=== PATIENT | female | born 1985 | race Hispanic/Latino ===

== ENCOUNTER 2020-01-06 10:09 | Observation (INO) | payer MEDICAID, OTHER, SELFPAY ==
[2020-01-06 11:03] VITALS: BMI 29.2
[2020-01-06] MEDS ORDERED: hydrALAZINE 20 MG/ML VIAL SLOW IVP PRN ×2 (11:08→12:12)
--- NOTE | 2020-01-06 11:41 | PDOC.FPROB ---
FMR OB H&P: HPI - History of Present Illness Chief Complaint: prolonged decel outpatient. Indentification: 34 yo at 33.0 wga by LMP c/w 13.4 wk sono History of Present Illness: Pt is here from [facility] after having NST today showing a prolonged decel lasting approximately 4 minutes. It was confirmed this was not maternal HR by simultaneously measuring maternal HR during NST. Pt speaks Georgian; video conference interpreter was used. Pt was being monitored for polyhydramnios; she has pregestational T2DM and cHTN. Last growth ultrasound was done approx 2 days ago and showed Hadlock of 98 %ile along w/ SERGIO of 27. + FM, no VB, no LOF, no ctx. Pt denies all symptoms; she has not been ill. Denies symptoms of Pre-E including headache, vision changes/flashes, RUQ pain, and edema. [facility] H&P: Current - Care : 2 Para: 1001 Gestational age: 35 Due date: 02/24/2020 Dating Criteria: LMP c/w 13.4 wk sono Course/Complications: Pre-gestational DM on insulin cHTN Polyhydramnios - OB Labs Blood type: O RH: positive Antibody Screen: negative HIV: negative RPR: negative HepBsAg: negative Rubella: immune Gonorrhea: negative Chlamydia: negative Pap Smear: NILM, HPV neg A1c: 8.6. Started lantus. Most recent A1C was 7.3. GBS: unknown Additional labs: Varicella immune. - Additional Ultrasound Additional: Echo: small muscular VSD FMR OB H&P: History - Past Medical History PMH: HTN T2DM - OB History OB History: Hx of 1 at 37 wga. - MECHANICAL SYSTEMS DESIGN ENGINEER History MECHANICAL SYSTEMS DESIGN ENGINEER History: none - Surgical History Sx History: none - Social History Social History: Denies smoking, drinking, drugs. - Family History Family History: denies. FMR OB H&P: Medications - Current Home Medications: Medication Instructions Recorded Confirmed Type Pnv95/Iron Fum/Folic Acid 1 each PO DAILY 06/28/16 01/06/20 History [ Caplet] Humulin R 3 units SQ TID-WM 01/06/20 01/06/20 History Insulin Glargine,Hum.Rec.Anlog 25 units SQ HS 01/06/20 01/06/20 History [Lantus] Allergies/Adverse Reactions: Allergies Allergy/AdvReac Type Severity Reaction Status Date / Time No Known Allergies Allergy Verified 07/28/16 19:43 FMR OB H&P: ROS - Review of Systems General: denies: fever/chills Eyes: denies: vision changes, scotomas ENT: denies: nasal congestion, rhinorrhea Cardiovascular: denies: chest pain, palpitation, edema Respiratory: denies: cough, shortness of breath Gastrointestinal: denies: abdominal pain, nausea, vomiting, diarrhea Genitourinary (Female): denies: dysuria, polyuria Musculoskeletal: denies: pain Neurologic: denies: syncope Integumentary: denies: rash Psychological: denies: depression, anxiety FMR OB H&P: Vital Signs - Maternal Vital signs: BP 131/63 HR 109 - Heart Tones Baseline: 120 (reactive) Variability: moderate Acceleration: present Deceleration: absent FMR OB H&P: Physical Exam - Physical Exam General: NAD, awake, alert and oriented HEENT: normocephalic and atraumatic, MMM, conjunctiva clear, grossly normal vision, grossly normal hearing Neck: supple, trachea midline Heart: normal S1/S2 Deviation from normal: tachycardic General: CTAB, no respiratory distress Abdomen: soft, gravid, bowel sound present Musculoskeletal: pulses present Neurological: no focal deficit Skin: no rash Lymphatic: no unusual bruising or bleeding Psychiatric: intact recent and remote memory, normal mood and affect - Pelvic Exam Estimated Weight: 8 lbs FMR OB H&P: Results - Labs Lab results: Laboratory Results - last 24 hr 01/06/20 11:17 POC Glucose 89 FMR OB H&P: A/P - Problem List (1) Pregestational diabetes mellitus, modified White class B Current Visit: Yes Status: Acute Code(s): O24.319 - UNSP PRE-EXISTING DIABETES IN , UNSP TRIMESTER (2) Chronic hypertension Current Visit: Yes Status: Acute Code(s): I10 - ESSENTIAL (PRIMARY) HYPERTENSION (3) Multiparous Current Visit: Yes Status: Acute Code(s): Z64.1 - PROBLEMS RELATED TO MULTIPARITY Disposition: admit to biometrics head service for observation and glucose control. Discussion: Date/Time: 01/06/20 1134 34 yo at 33.0wga by LMP/13.4 wk sono here for: Prolonged decel on outpatient NST - repeat NST here - BPP showing 04/22 - due to pt's high risk of stillbirth, will admit for glucose control and NST every shift. Small muscular VSD on echo Pregestational T2DM - continue home lantus and humulin doses - glucose fasting and 2-hour postprandial. - admit for glucose control. cHTN - on aspirin. This H&P was discussed with Dr. Montelongo, and Dr. Tenorio who agree with the above documentation and plan. Signature: Erica Stoddard MD PGY1
--- NOTE | 2020-01-06 12:11 | ULT ---
EXAM: US Biophysical Profile PROVIDED CLINICAL HISTORY: Positive . Hypertension, class B diabetes mellitus. COMPARISON: None FINDINGS: There is evidence of a single intrauterine gestation in cephalic presentation. Cardiac Doppler demons trates heart tones with a heart rate of 123 bpm. The placenta is located anteriorly without evidence of placenta previa. Anechoic area is seen within the placenta likely attributable to fibrin deposition or possibly venous lópez. Amniotic fluid index is increased measuring 19 cm. A score of 2 was obtained each for tone, breathing, movements, and amniotic fluid v olume. IMPRESSION: 1. Increased amniotic fluid index of 19 cm suggesting polyhydramnios. 2. Single intrauterine gestation in cephalic presentation with heart tones documented. 3. Total biophysical profile score of 8 out of 8.
[2020-01-06] MEDS ORDERED: Promethazine HCl 25 MG/ML VIAL IM PRN (12:12)
[2020-01-06] MEDS ORDERED: Ondansetron PF 4 MG/2 ML Vial IVP PRN (12:12)
[2020-01-06] MEDS ORDERED: Acetaminophen 500 MG TAB PO PRN (12:12)
[2020-01-06] MEDS ORDERED: Dextrose 50% Abboject 50 ML SYRINGE SLOW IVP PRN (12:15)
[2020-01-06] MEDS ORDERED: Dextrose 5% in Water 1,000 ML IV PRN (12:15)
[2020-01-06] MEDS ORDERED: Insulin Regular 300 UNITS/3 ML VIAL ONE (12:58)
[2020-01-06] MEDS ORDERED: Insulin Regular 300 UNITS/3 ML VIAL SC SCH ×2 (16:30)
[2020-01-06] MEDS ORDERED: INSULIN REGULAR SQ SCH (17:00)
[2020-01-06] MEDS: Insulin Glargine 25 UNITS in Pre-Filled Syringe SC SCH (21:03)
--- NOTE | 2020-01-07 06:07 | PDOC.OBAPN ---
FMR OB AP PN: Sub - Interval History Chief Complaint: elevated glucose Indentification: 34 y/o @ 33.1 WGA by LMP/13.4 wk sono Interval History: Denies ctx, LOF, VB, H/A, vision changes, SOB, edema. +FM FMR OB AP PN: Obj - Maternal Vital signs: BP: 111/67 HR: 84 RR: 15 Tmax: 98.0 Pox: 98% on RA Wt: 68kg FMR OB AP PN: Exam - Physical Exam General: NAD, awake, alert and oriented HEENT: normocephalic and atraumatic, MMM, conjunctiva clear, grossly normal vision, grossly normal hearing Neck: supple, no LAD Heart: RRR, normal S1/S2, no murmurs/rubs/gallops, pulses present, no edema General: CTAB, no respiratory distress, good air movement, no rales/rhonchi, no wheezing Abdomen: soft, gravid, non-tender Musculoskeletal: pulses present, FROM in all four extremities Neurological: no focal deficit Skin: good tugor, capillary refill <2 seconds Lymphatic: no unusual bruising or bleeding, no purpura Psychiatric: intact recent and remote memory, good judgement and insight FMR OB AP PN: Data - Labs Lab results: Laboratory Results - last 24 hr 01/06/20 01/06/20 11:17 19:26 POC Glucose 89 132 H R OB AP PN: A/P - Problem List (1) Current Visit: Yes Status: Acute Qualifiers: Weeks of gestation: 33 weeks Qualified Code(s): Z3A.33 - 33 weeks gestation of (2) Pregestational diabetes mellitus, modified White class B Current Visit: Yes Status: Acute Code(s): O24.319 - UNSP PRE-EXISTING DIABETES IN , UNSP TRIMESTER (3) Chronic hypertension Current Visit: Yes Status: Acute Code(s): I10 - ESSENTIAL (PRIMARY) HYPERTENSION (4) Polyhydramnios affecting Current Visit: Yes Status: Acute Code(s): O40.9XX0 - POLYHYDRAMNIOS, UNSP TRIMESTER, NOT APPLICABLE OR UNSP Disposition: 1. Class B Pregestational Diabetes Pt with A1c 8.6 earlier in , now down to 7.3. Pt on lantus 25U qHS and Humulin R 3U with breakfast, 3U with lunch, 6U with dinner. She reports all her glucose have been well controlled. Polyhydramnios on US the past couple of weeks. Random glucose yesterday was 89 after pt had been fasting and only had a couple of sips of apple juice. Dinner 2h postprandial was 132. Fasting this AM 84. NST overnight reactive. BPP on 01/05 8. -Will monitor fasting and 2h postprandials throughout the day and titrate up insulin as indicated. -CC diet -Continue aspirin 2. Chronic HTN BP's all < 140/90 while she has been here with one that was 139 systolic. She is not on any medications -Will monitor -Continue aspirin 3. Polyhydramnios Possible sign of uncontrolled glucose 4. VSD Small -MFM aware 5. -Will do qshift NST's - vitamins Discussion: Date/Time: 01/07/20 0605 This H&P was discussed with Dr. Montelongo who agrees with the above documentation and plan. Signature: Pennie Tenorio MD, PGY-3
[2020-01-07] MEDS: Insulin Regular 300 UNITS/3 ML VIAL SC SCH ×3 (08:02→17:05)
[2020-01-07] MEDS: Prenatal Vitamin 1 TAB PO SCH (08:02)
[2020-01-07] MEDS: Aspirin 81 mg Enteric Coated Tablet PO SCH (08:02)
[2020-01-07] MEDS ORDERED: Insulin Regular 300 UNITS/3 ML VIAL SC SCH ×3 (10:15→17:00)
--- NOTE | 2020-01-07 14:51 | PDOC.BPN ---
- Brief Progress Note Called to review NST by RN. NST interpretation: FHR baseline: 140 bpm Accels x2, 15x15, appropriate for 33.1 wga No decels. No obvious contractions, possibly some uterine irritability. NST Reactive.
[2020-01-07] MEDS: Insulin Glargine 25 UNITS in Pre-Filled Syringe SC SCH (21:26)
--- NOTE | 2020-01-08 07:24 | PDOC.OBAPN ---
FMR OB AP PN: Sub - Interval History Chief Complaint: elevated glucose Indentification: 34 y/o @ 33.2 WGA by LMP/13.4 wk sono Interval History: Denies ctx, LOF, VB, H/A, vision changes, SOB, edema. +FM FMR OB AP PN: Obj - Maternal Vital signs: BP: 129/86 HR: 92 RR: 18 Tmax: 98.4 Pox: 100% on RA Wt: 68kg FMR OB AP PN: Exam - Physical Exam General: NAD, awake, alert and oriented HEENT: MMM, conjunctiva clear, grossly normal vision, grossly normal hearing Neck: supple, FROM Heart: pulses present, no edema General: no respiratory distress Abdomen: soft, gravid Musculoskeletal: normal gait and station, pulses present Neurological: no focal deficit Skin: good tugor, capillary refill <2 seconds Lymphatic: no unusual bruising or bleeding, no purpura Psychiatric: intact recent and remote memory, good judgement and insight FMR OB AP PN: Data - Labs Lab results: Laboratory Results - last 24 hr 01/06/20 01/07/20 01/07/20 15:34 10:08 13:17 POC Glucose 119 H 172 H 181 H 01/07/20 01/07/20 01/08/20 15:37 20:16 06:42 POC Glucose 89 131 H 92 FMR OB AP PN: A/P - Problem List (1) Current Visit: Yes Status: Acute Qualifiers: Weeks of gestation: 33 weeks Qualified Code(s): Z3A.33 - 33 weeks gestation of (2) Pregestational diabetes mellitus, modified White class B Current Visit: Yes Status: Acute Code(s): O24.319 - UNSP PRE-EXISTING DIABETES IN , UNSP TRIMESTER (3) Chronic hypertension Current Visit: Yes Status: Acute Code(s): I10 - ESSENTIAL (PRIMARY) HYPERTENSION (4) Polyhydramnios affecting Current Visit: Yes Status: Acute Code(s): O40.9XX0 - POLYHYDRAMNIOS, UNSP TRIMESTER, NOT APPLICABLE OR UNSP Disposition: 1. Class B Pregestational Diabetes Pt with A1c 8.6 earlier in , now down to 7.3. Pt on lantus 25U qHS and Humulin R 3U with breakfast, 3U with lunch, 6U with dinner. She reports all her glucose have been well controlled. Polyhydramnios on US the past couple of weeks. NST overnight reactive. BPP on 01/05 04/22. Pt postprandials uncontrolled yesterday with normal fastings so before dinner had a discussion with Dr. Somers and decided to change her humulin R regimen to 10U BID and will titrate from there. -Will monitor fasting and 2h postprandials throughout the day and titrate up insulin as indicated. -CC diet -Continue aspirin 2. Chronic HTN BP's all < 140/90 while she has been here with one that was 139 systolic. She is not on any medications -Will monitor -Continue aspirin 3. Polyhydramnios Possible sign of uncontrolled glucose 4. Macrosomia -Last growth US hadlock 98%tile, likely 2/2 uncontrolled DM 5. VSD Small -MFM aware 6. -Will do qshift NST's - vitamins Discussion: Date/Time: 01/08/20723 This H&P was discussed with Dr. Hurtado who agrees with the above documentation and plan. Signature: Pennie Tenorio MD, PGY-3
[2020-01-08] MEDS: Insulin Regular 300 UNITS/3 ML VIAL SC SCH ×2 (07:45→17:19)
[2020-01-08] MEDS: Aspirin 81 mg Enteric Coated Tablet PO SCH (08:42)
[2020-01-08] MEDS: Prenatal Vitamin 1 TAB PO SCH (08:42)
[2020-01-08] MEDS: Insulin Glargine 28 UNITS in Pre-Filled Syringe 1 EACH SC SCH (20:37)
--- NOTE | 2020-01-09 06:25 | PDOC.OBAPN ---
FMR OB AP PN: Sub - Interval History Chief Complaint: none. Feeling well. Indentification: 34 yo at 33.3 wga by LMP/13.4 wk sono Interval History: NAEON. VSS. Ambulating w/o difficulty. Tolerating PO. +FM FMR OB AP PN: Obj - Maternal Vital signs: BP: 103/63 HR: 92 RR: 16 Tmax: 98.5 F Pox: 99% on RA - Heart Tones Baseline: 140 (reactive) Variability: moderate Acceleration: present Deceleration: absent FMR OB AP PN: Exam - Physical Exam General: NAD, awake, alert and oriented Heart: RRR, normal S1/S2 General: CTAB, no respiratory distress Abdomen: soft, gravid, non-tender Psychiatric: normal mood and affect FMR OB AP PN: Data - Labs Lab results: Laboratory Results - last 24 hr 01/08/20 01/08/20 01/08/20 06:42 10:11 14:03 POC Glucose 92 98 132 H 01/08/20 20:02 POC Glucose 114 H FMR OB AP PN: A/P - Problem List (1) Pregestational diabetes mellitus, modified White class B Current Visit: Yes Status: Acute Code(s): O24.319 - UNSP PRE-EXISTING DIABETES IN , UNSP TRIMESTER (2) Chronic hypertension Current Visit: Yes Status: Acute Code(s): I10 - ESSENTIAL (PRIMARY) HYPERTENSION (3) Multiparous Current Visit: Yes Status: Acute Code(s): Z64.1 - PROBLEMS RELATED TO MULTIPARITY Disposition: admitted to power truck driver unit for blood sugar control. Discussion: Date/Time: 01/09/20624 1. Class B Pregestational Diabetes. - Humulin 10BID. Increased lantus to 28 units last night. - Will monitor fasting and 2h postprandials throughout the day and titrate up insulin as indicated. - CC diet - Continue aspirin 2. Chronic HTN BP's all < 140/90 while she has been here with one that was 139 systolic. She is not on any medications - Will monitor - Continue aspirin 3. Polyhydramnios Possible sign of uncontrolled glucose 4. Macrosomia -Last growth US hadlock 98%tile, likely 2/2 uncontrolled DM 5. VSD Small, muscular type -MFM aware 6. - Will do qshift NST's - vitamins This H&P was discussed with Dr. Delatorre who agrees with the above documentation and plan. Signature: Erica Stoddadr MD, PGY-1 Signature: Duane Stoddard MD PGY1
[2020-01-09] MEDS: Insulin Regular 300 UNITS/3 ML VIAL SC SCH ×2 (07:48→17:42)
[2020-01-09] MEDS: Aspirin 81 mg Enteric Coated Tablet PO SCH (07:49)
[2020-01-09] MEDS: Prenatal Vitamin 1 TAB PO SCH (07:49)
[2020-01-09] MEDS: Insulin Glargine 28 UNITS in Pre-Filled Syringe 1 EACH SC SCH (21:09)
--- NOTE | 2020-01-10 05:39 | PDOC.OBAPN ---
FMR OB AP PN: Sub - Interval History Hospital Day: 5 Chief Complaint: none, resting well Indentification: 34 yo at 33.4 wga by LMP/13.4 wk sono Interval History: No acute events overnight. VSS. +FM. Tolerating PO. Agreeable with plan FMR OB AP PN: Obj - Maternal Vital signs: BP: [109-123/59-74] HR: [94] RR: [18] Tmax: [98.5F] Pox: [99]% on [RA] Wt: [ 68.039kg] - Heart Tones Baseline: 120 Variability: moderate Acceleration: present Deceleration: absent [place] contractions every: occasional FMR OB AP PN: Exam - Physical Exam General: NAD, awake, alert and oriented HEENT: normocephalic and atraumatic, MMM Neck: supple, FROM Chest: non-tender to palpation, no lesions Heart: RRR, normal S1/S2 General: CTAB, no respiratory distress Abdomen: soft, gravid Musculoskeletal: pulses present, FROM in all four extremities Neurological: no tremor, no focal deficit Skin: no rash, good tugor Lymphatic: no unusual bruising or bleeding, no purpura Psychiatric: intact recent and remote memory, good judgement and insight FMR OB AP PN: Data - Labs Lab results: Laboratory Results - last 24 hr 01/09/20 01/09/20 01/09/20 06:25 09:46 13:09 POC Glucose 92 159 H 95 01/09/20 19:38 POC Glucose 131 H FMR OB AP PN: A/P - Problem List (1) Chronic hypertension Current Visit: Yes Status: Acute Code(s): I10 - ESSENTIAL (PRIMARY) HYPERTENSION (2) Multiparous Current Visit: Yes Status: Acute Code(s): Z64.1 - PROBLEMS RELATED TO MULTIPARITY (3) Polyhydramnios affecting Current Visit: Yes Status: Acute Code(s): O40.9XX0 - POLYHYDRAMNIOS, UNSP TRIMESTER, NOT APPLICABLE OR UNSP (4) Pregestational diabetes mellitus, modified White class B Current Visit: Yes Status: Acute Code(s): O24.319 - UNSP PRE-EXISTING DIABETES IN , UNSP TRIMESTER Disposition: Patient is a 34F @ 33.4wga by LMP/13.4wk sono admitted for: #Class B Pregestational Diabetes. - Humulin adjusted to 12u qam and 12u qpm today. Lantus at 30u qpm - Will monitor fasting and 2h postprandials throughout the day and titrate up insulin as indicated. - CC diet - Continue aspirin #Chronic HTN BP's all < 140/90 while she has been here with one that was 139 systolic. She is not on any medications - Will monitor - Continue aspirin #Polyhydramnios Possible sign of uncontrolled glucose # Macrosomia -Last growth US hadlock 98%tile, likely 2/2 uncontrolled DM # VSD Small, muscular type -MFM aware # - Will do qshift NST's, last NST 01/08pm reactive - vitamins This H&P was discussed with Dr. Stuart who agrees with the above documentation and plan. Signature: Leisa Victor MD PGY1 Discussion: Date/Time: 01/10/20 0537 This H&P was discussed with [] and [] who agree with the above documentation and plan.
[2020-01-10] MEDS ORDERED: Insulin Regular 300 UNITS/3 ML VIAL SC SCH ×2 (07:00→17:00)
[2020-01-10] MEDS ORDERED: Insulin Glargine 30 UNITS in Pre-Filled Syringe 1 EACH SC SCH ×2 (09:00→21:00)
[2020-01-10] MEDS: Prenatal Vitamin 1 TAB PO SCH (09:58)
[2020-01-10] MEDS: Aspirin 81 mg Enteric Coated Tablet PO SCH (09:58)
--- NOTE | 2020-01-10 11:23 | PDOC.BPN ---
- Brief Progress Note NST before discharge: Baseline 130 +accelerations x 2, no decelerations moderate variability possible occasional ctx vs uterine irritability Reactive Strip
[2020-01-10 12:23] VITALS: BP 127/78; TEMP 98
--- NOTE | 2020-01-10 12:38 | DIS ---
DATE OF ADMISSION: 01/06/2020 DATE OF DISCHARGE: 01/10/2020 RESIDENT: Norbert Quispe MD. DISCHARGE ATTENDING: Jean Delatorre MD. CONSULTS: None. PROCEDURES: None. PRIMARY DIAGNOSES: Uncontrolled pregestational diabetes, chronic hypertension, polyhydramnios, macrosomia. SECONDARY DIAGNOSIS: None. DISCHARGE MEDICATIONS: 1. Lantus 28 units at bedtime. 2. Humulin 12 units b.i.d. 3. vitamin. 4. Discontinued medications. HISTORY OF PRESENT ILLNESS/HOSPITAL COURSE: This is a G2, P1, at 33 and 3 weeks today, who was admitted for evaluation of a prolonged deceleration that was noted while the patient was on NST at the clinic. Additionally, she was admitted for better control of her pregestational type 2 diabetes mellitus. During the course of her stay, her insulin was titrated up, and ultimately, she was sent home on a regimen of Lantus 28 units and Humulin 12 units b.i.d. The patient still had elevated blood glucose, but they were all less than 160. Followup was made for Clinic as the patient will need to have her insulin adjusted based on her home diet. Extensive education was given to the patient while she was here in the hospital. Additionally, she will have twice weekly testing. Would anticipate the patient will deliver by 37 or 38 weeks in light of her macrosomia and other medical conditions. DISPOSITION: Stable. DISCHARGE INSTRUCTIONS: 1. Location: Home. 2. Diet: Regular. 3. Activity: As tolerated. 4. Followup: Follow up in 1 day at clinic. The patient has been instructed to take pre and postprandial glucose so that her insulin can be adjusted from the clinic. The patient has no elevated blood pressure charted during the stay, and we will continue to monitor hypertension. Anticipate delivery at 37 to 38 weeks. I spent 20min face to face for diabetic education, medication review, and follow up schedule. Job ID: [id number] [facility]
--- NOTE | 2020-01-10 14:43 | PDOC.EVN ---
Event Note - Event Note Event Note: I spent 20min reviewing medication usage, diet and exercise recommendations, documentation and short/residential benefits to good diabetes control. PT was able to communicate back the regimen changes. She is being discharged with improved glucose control with plan for frequent outpatient follow up visits to work to further improve control. Pt has expressed a desire and commitment for compliance
[2020-01-10] MEDS ORDERED: Insulin Glargine 28 UNITS in Pre-Filled Syringe 1 EACH SC SCH (21:00)
== END 2020-01-10 12:30 | disposition home health service (06) ==
LOC: L&D/OP 10:09 → 3SW 12:15
PROVIDERS: ADMIT Obstetrics & Gynecology; ATTEND Obstetrics & Gynecology
DX: O36.8330 Maternal care for abnormalities of the fetal heart rate or rhythm, third trimester, not applicable or unspecified (principal); O24.313 Unspecified pre-existing diabetes mellitus in pregnancy, third trimester; O10.913 Unspecified pre-existing hypertension complicating pregnancy, third trimester; O40.3XX0 Polyhydramnios, third trimester, not applicable or unspecified; O36.63X0 Maternal care for excessive fetal growth, third trimester, not applicable or unspecified; O35.8XX0 Maternal care for other (suspected) fetal abnormality and damage, not applicable or unspecified; O09.43 Supervision of pregnancy with grand multiparity, third trimester; Z3A.33 33 weeks gestation of pregnancy; Z79.4 Long term (current) use of insulin
CPT/HCPCS: 36416; 59025; 76819; 99285; G0378; J1815

== ENCOUNTER 2020-02-10 | Inpatient (IN) | payer SELFPAY | END 2020-02-13 18:59 | disposition home or self-care (01) | DRG 807 | PROVIDERS: ADMIT Emergency Medicine | PROC: 10E0XZZ Delivery of Products of Conception, External Approach (ICD-10-PCS; principal; 2020-02-12) | PROC: 0KQM0ZZ Repair Perineum Muscle, Open Approach (ICD-10-PCS; 2020-02-12) | PROC: 10907ZC Drainage of Amniotic Fluid, Therapeutic from Products of Conception, Via Natural or Artificial Opening (ICD-10-PCS; 2020-02-12) | DX: O24.12 Pre-existing type 2 diabetes mellitus, in childbirth (principal); Z37.0 Single live birth; O16.4 Unspecified maternal hypertension, complicating childbirth; Z3A.38 38 weeks gestation of pregnancy; O40.3XX0 Polyhydramnios, third trimester, not applicable or unspecified; O99.824 Streptococcus B carrier state complicating childbirth; O76 Abnormality in fetal heart rate and rhythm complicating labor and delivery; O66.0 Obstructed labor due to shoulder dystocia; O66.8 Other specified obstructed labor ==